=== PATIENT | female | born 1970 | race Asian ===

== ENCOUNTER 2020-09-20 13:37 | Emergency (ER) | payer BC, OTHER ==
[~2020-09-20] VITALS: Ht 160 cm; Wt 54.4 kg
[2020-09-20 14:34] VITALS: BP 129/91
== END 2020-09-20 15:24 | disposition home or self-care (01) ==
LOC: ER 13:37
DX: S16.1XXA Strain of muscle, fascia and tendon at neck level, initial encounter (principal); V43.52XA Car driver injured in collision with other type car in traffic accident, initial encounter; Y93.89 Activity, other specified; Y92.410 Unspecified street and highway as the place of occurrence of the external cause; Y99.8 Other external cause status
CPT/HCPCS: 72040